=== PATIENT | female | born 1990 ===

== ENCOUNTER 2023-01-08 11:13 | Emergency (ER) | payer MEDICAID, SELFPAY ==
[2023-01-08 12:02] VITALS: BP 138/91; PULSE 76; RESP 18; TEMP 36.7; O2SAT 95; BMI 31.7
--- NOTE | 2023-01-08 12:02 | ED.GENADULT ---
HPI - General Adult General Chief complaint: General Medical Stated complaint: Tampon stuck Related Data Allergies Allergy/AdvReac Type Severity Reaction Status Date / Time No Known Allergies Allergy Verified 01/08/23 12:01 [facility] Social History Social History Advance Directives: No Advance Directives Information Provided: No Physical Exam ED Vital Signs: BMI result Body Mass Index 31.7 Course Course Course Narrative: This is an RME: Additional HPI, ROS, PE not included below will be deferred to primary provider. 32 year old female presents w/ tampon stuck in vaginal canal since Saturday. Reports no concern for pregancy. States shes on her period and not bleeding.. Plan- UA Discharge Plan Discharge Clinical Impression: Eloped from emergency department Patient Disposition: Elopement Discharge Date/Time: 01/08/23 19:17 Print Language: Greek
== END 2023-01-08 19:17 | disposition left against medical advice (07) ==
PROVIDERS: Emergency Provider Emergency Medicine
DX: T19.2XXA Foreign body in vulva and vagina, initial encounter (principal)
CPT/HCPCS: 99281

== ENCOUNTER 2025-05-07 12:53 | Outpatient (REF) | payer OTHER, SELFPAY ==
[2025-05-07 17:39] LABS: MANUAL DIFF FLAG NO
[2025-05-07 17:47] LABS: Hematocrit 40.5 % (37.0-47.0); Hemoglobin 13.8 g/dl (12.0-16.0); Imm Gran Abs Auto 0.05 X10*3/uL (0.00-0.03); Imm Gran Pct Auto 0.5 % (0.0-0.4); Lymphocytes Absolute Auto 3.1 X10*3/uL (1.2-4.9); Mean Corpuscular HGB Conc 34.1 g/dl (31.0-35.0); Mean Corpuscular Hemoglobin 29.7 pg (27.0-33.0); Mean Corpuscular Volume 87.1 fL (80.0-98.0); NRBC Abs Auto 0.000 X10*3/uL (0.0-0.012); NRBC Pct Auto 0.0 /100WBC (0.0-0.2); Platelet Count 286 X10*3/uL (160-400); Red Blood Count 4.65 X10*6/uL (4.20-5.50); White Blood Count 9.4 X10*3/uL (4.8-10.8)
[2025-05-07 17:50] LABS: Appearance Urine Clear; Glucose Urine UA Negative (Negative); PH 6.0 (5.0-9.0); Specific Gravity - Urine 1.015 (1.005-1.025); UMIC TRIGGER UACC YES
[2025-05-07 18:05] LABS: Alanine Aminotransferase 44 U/L (0-31); Albumin Level 4.8 g/dL (3.5-5.0); Alkaline Phosphatase 86 U/L (39-117); Anion Gap 10 (12-20); Aspartate Amino Transferase 22 U/L (5-31); Blood Urea Nitrogen 11 mg/dL (9-16); Calcium 9.7 mg/dL (8.4-10.2); Carbon Dioxide 27 mmol/L (22-29); Chloride 105 mmol/L (96-108); Cholesterol 201 mg/dL (<200); Estimated Glomerular Filt Rate > 60; HDL Cholesterol 48 mg/dL (>40); Magnesium 2.2 mg/dL (1.6-2.6); Potassium 3.5 mmol/L (3.3-5.1); Sodium 138 mmol/L (135-145); Total Protein 8.0 g/dL (6.5-8.0); Triglycerides 228 mg/dL (<150)
[2025-05-07 18:36] LABS: Folate 12.5 ng/mL (> or = 4.0); Vitamin B12 346 pg/mL (200-900)
[2025-05-07 23:47] LABS: CT PCR Urine NOT DETECTED (Not Detect.); NG PCR Urine NOT DETECTED (Not Detect.)
[2025-05-08 07:21] LABS: HBS Num1 373.65 mIU/mL (0-7.99); HBsAGNum1 0.29 S/CO (0.00-0.99); HIV Num 1 0.07 S/CO (0.00-0.99); Hepatitis B Surface Antigen Negative (Negative); ~HepC Num1 0.12 S/CO (0.00-0.79); ~Hepatitis B Surface Antibody REACTIVE (Nonreactive); ~Hepatitis C Antibody Nonreactive (Nonreactive)
[2025-05-08 07:26] LABS: Syphilis Screen Nonreactive (Nonreactive)
[2025-05-11 18:29] LABS: Vitamin D 25-OH, D2 <4 ng/mL; Vitamin D 25-OH, D3 23 ng/mL; Vitamin D 25-OH, Total 23 ng/mL (30-100)
== END 2025-05-07 12:54 | disposition home or self-care (01) ==
LOC: HO.HKASLDS 12:53
PROVIDERS: PCP Student in an Organized Health Care Education/Training Program; Visit Provider Student in an Organized Health Care Education/Training Program
DX: Z13.9 Encounter for screening, unspecified (principal); F41.9 Anxiety disorder, unspecified; G47.00 Insomnia, unspecified; Z96.22 Myringotomy tube(s) status; D17.9 Benign lipomatous neoplasm, unspecified; R87.619 Unspecified abnormal cytological findings in specimens from cervix uteri; Z94.9 Transplanted organ and tissue status, unspecified; Z87.891 Personal history of nicotine dependence; H93.90 Unspecified disorder of ear, unspecified ear
CPT/HCPCS: 80053; 80061; 81001; 82306; 82607; 82746; 83036; 83735; 84443; 85025; 86706; 86780; 86803; 87340; 87389; 87491; 87591; 96127

== ENCOUNTER 2025-05-07 12:53 | Outpatient (AMB) | payer OTHER, SELFPAY ==
--- NOTE | 2025-05-07 13:01 | A.OFFPC_ITS ---
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 Required: No Accompanied by: Self / Same As Patient Allergies No Known Allergies Allergy (Verified 05/07/25 13:03) Medication List - Last Reconciled 05/07/25 by Preston Arreguin MD No Known Home Meds Tobacco use date assessed: 05/07/25 Dental Screening Dental Screen Date: 05/07/25 Did you have a dental visit in the last 12 months?: Yes Did you have a dental problem in the last 6 months where you did not have access to dental care?: No Was dental information given to patient?: Patient has dentist HPI HPI Comments History of Present Illness Details History of Present Illness The patient is a 34 year old female presenting with a desire to establish primary care. Anxiety and Insomnia: The patient reports experiencing super high anxiety , which she attributes to life circumstances and a high-stress job in [employer]. She has been taking non-prescribed hydroxyzine for anxiety and Ativan to help with sleep, which she obtains from a cousin. She reports her sleep is horrible due to high tension. Chronic Otitis: The patient has a history of chronic right ear problems since childhood, including having a graft for the eardrum and placement of ET tubes as a kid. She experienced a very bad ear infection a few months ago, and the ear still bothers her slightly. Lipoma: The patient notes a lump on her arm that sometimes gets really hard and other days is soft. She has expressed a desire to have it removed. Gynecologic History: The patient reports a history of abnormal Pap smears with abnormal cells and has recently resumed getting them after a period without health insurance. Her menses occur monthly and are normal now, though she had very bad periods in middle school. Surgical History: - Eardrum graft - Eustachian tube (ET) placement in [facility] Medications: - Hydroxyzine (non-prescribed) for anxie ty - Ativan (non-prescribed) for sleep Social History: - Employment: Works in [employer], which she describes as a high- stress job. - Family status: She is a single mother to one daughter, who was born via normal spontaneous vaginal delivery. - Tobacco use: The patient has a history of smoking cigarettes but has quit. - Vaping: She currently vapes occasional ly, for the past couple of years. - Substance use: Denies illegal drug use . Family History: - The patient denies any family history of cancer. Past Medical History - Chronic ear problems since childhood. - Recent severe ear infection a few paula hs prior. - History of abnormal Pap smears. Health Maintenance - Comprehensive lab work will be ordered to establish a baseline. - Lab orders include: Complete Blood Cou nt (CBC), Comprehensive Metabolic Panel (CMP), chlamydia/gonorrhea screen, Hemoglobin A1c, Hepatitis B and C panels, HIV screen, lipid panel, magnesium, syphilis screen (RPR), thyroid panel, urinalysis, vitamin B12, folate, and vitamin D. - A follow-up visit is scheduled in two weeks to discuss the results and formul ate further plans. [facility] Medical History (Updated 05/07/25 @ 20:20 by Preston Arreguin MD) Chronic disease of ear History of tobacco use Abnormal Pap smear of cervix Lipoma Insomnia Anxiety Surgical History (Updated 05/07/25 @ 20:18 by Preston Arreguin MD) History of tissue graft History of placement of ear tubes Family History (Updated 05/07/25 @ 13:10 by Checo Cartagena MA) Father Heart problem Mother No problems noted. Social History Housing: Apartment Patient Tobacco Use Status: Former Tobacco user e-Cigarette/Vaping Use: Never Used service: No Current occupational status: employed Cognitive needs: No Hearing needs: No Vision needs: Yes (rx glasses) Questionnaire PHQ-9 Over the last 2 weeks, how often have you been bothered by any of the following problems? 1. Little interest or pleasure in doing things: not at all 2. Feeling down, depressed, or hopeless: not at all 3. Trouble falling or staying asleep, or sleeping too much: several days 4. Feeling tired or having little energy: several days 5. Poor appetite or overeating: not at all 6. Feeling bad about yourself - or that you are a failure or have let yourself or your family down: not at all 7. Trouble concentrating on things, such as reading the newspaper or watching television: not at all 8. Moving or speaking so slowly that other people could have noticed. Or the opposite - being so fidgety or restless that you have been moving around a lot more than usual: not at all 9. Thoughts that you would be better off or of hurting yourself in some way: not at all Total score: 2 Depression Screening Interpretation: Negative Depression Screening Done: Yes Source: Developed by Drs. Juice Mederos, Sharon Escudero, Alejandro Nixon and colleagues, with an educational regla from [employer]. Thrive Questionnaire I am a: Patient What is your living situation today?: I have a steady place to live Within the past 12 months, did the food you bought not last and you didn't have the money to get more?: Never true Within the past 12 months, did you worry whether your food would run out before you got money to buy more?: Never true Do you have trouble paying for medicines?: No Do you have trouble getting transportation to medical appointments?: No Do you have trouble paying your heating and electricity bill?: No Do you have trouble taking care of your child, family member or friend?: No Do you have trouble with day-to-day activities such as bathing, preparing meals, shopping, managing finances, etc.?: No Are you currently unemployed and looking for a job?: No Are you interested in more education?: No Please select the resources that you would like help with: None Currently or been in a relationship where the following occur: No concerns reported THRIVE Score: 0 AUDIT C Alcohol Use Questionnaire (AUDIT-C) 1. How often do you have a drink containing alcohol?: Monthly or less 2. How many drinks containing alcohol do you have on a typical day when you are drinking?: 3 or 4 3. How often do you have six or more drinks on one occasion?: Never Total Score: 2 RONNIE-7 AMB Questionnaire RONNIE-7 Feeling nervous, anxious, or on edge: 2 = More than half the days Not being able to stop or control worryin = Several days Worrying too much about different things: 1 = Several days Trouble relaxin = Several days Being so restless that it is hard to sit still: 0 = Not at all Becoming easily annoyed or irritable: 0 = Not at all Feeling afraid as if something awful might happen: 1 = Several days Total RONNIE-7 score (0-4 normal; 5-9 mild; 10-14 moderate; 15-21 severe): 6 Source: Developed by Drs. Juice Mederos, Sharon Escudero, Alejandro Nixon and colleagues, with an educational regla from [employer]. Review of Systems Narrative Review of Systems - Constitutional: Reports high stress levels and poor sleep. Denies other constitutional symptoms. - HEENT: Reports a history of chronic right ear problems, with some current mild bother after a recent infection. Denies other HEENT symptoms. - Psychological: Reports super high anxiety. - : Reports history of abnormal Pap smears. Menses are regular and normal. Denies dysuria or other urinary issues. - GI: Denies constipation, diarrhea, or other GI symptoms. - Skin: Reports a lump on her arm. 10-point ROS reviewed and negative except as noted in HPI Physical exam (Primary Care) Vital Signs: Last Vital Signs Temp 98.2 F 05/07/25 13:08 Pulse 83 05/07/25 13:08 Resp 16 05/07/25 13:08 BP 130/76 05/07/25 13:08 Pulse Ox 98 05/07/25 13:08 Oxygen Delivery Method Room Air 05/07/25 13:08 BMI result Body Mass Index 29.0 Tobacco/Smoking Status: Tobacco use Status Tobacco use date assessed 05/07/25 05/07/25 13:06 Patient Tobacco Use Status Former Tobacco user 05/07/25 13:12 e-Cigarette/Vaping Use Never Used 05/07/25 13:12 PHQ-9: PHQ-9 Score PHQ-9: Total score 2 05/07/25 13:42 Depression Screening Interpretation: Negative Currently or been in a relationship where the following occur: No concerns reported Narrative Physical Exam General: Well-appearing, in no acute distress. Vital signs: Within normal limits, 130. HEENT: Normocephalic, atraumatic. PERRLA, EOMI. Conjunctiva clear, sclera anicteric. Oropharynx clear, mucous membranes moist. Right ear with a history of chronic ear problems and a graft on the eardrum; no current infection observed. TMs intact bilaterally. Neck: Supple, no lymphadenopathy, no thyromegaly, no JVD or carotid bruits. Cardiovascular: RRR, normal S1/S2, no murmurs, rubs, or gallops. Peripheral pulses 2+ and symmetric. No edema. Respiratory: Lungs clear to auscultation bilaterally, no wheezes, rales, or rhonchi. Normal effort. Abdomen: Soft, non-tender, non-distended. Normoactive bowel sounds. No hepatosplenomegaly, no masses. MSK: Full range of motion, no joint swelling or deformity. Normal gait. Noted lipoma on the arm, well-circumscribed, mobile, sometimes hard or soft. Skin: Warm, dry, intact. No rashes, lesions, or pallor. Neuro: Alert and oriented x3. Cranial nerves II-XII intact. Strength 5/5 throughout. Sensation intact. Reflexes 2+ symmetric. Normal coordination and gait. Psych: Appropriate mood and affect. Normal judgment and insight. 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 Taking hydroxyzine and Ativan for anxiety and sleep, not prescribed. Coding Level of Care Code New Pt Level 4 (10025) Add On Problem Visit Only Diagnoses Anxiety F41.9 Insomnia G47.00 History of placement of ear tubes Z96.22 Lipoma D17.9 Abnormal Pap smear of cervix R87.619 History of tissue graft Z94.9 History of tobacco use Z87.891 Chronic disease of ear H93.90 Assessment & Plan Assessment & Plan (1) Anxiety: Code(s): F41.9 - Anxiety disorder, unspecified Category: Medical (2) Insomnia: Code(s): G47.00 - Insomnia, unspecified Category: Medical (3) History of placement of ear tubes: Code(s): Z96.22 - Myringotomy tube(s) status Category: Medical (4) Lipoma: Code(s): D17.9 - Benign lipomatous neoplasm, unspecified Category: Medical (5) Abnormal Pap smear of cervix: Code(s): R87.619 - Unspecified abnormal cytological findings in specimens from cervix uteri Category: Medical (6) History of tissue graft: Code(s): Z94.9 - Transplanted organ and tissue status, unspecified Category: Medical (7) History of tobacco use: Code(s): Z87.891 - Personal history of nicotine dependence Category: Medical (8) Chronic disease of ear: Code(s): H93.90 - Unspecified disorder of ear, unspecified ear Category: Medical Plan Consent Patient was informed and verbally consented to the use of an ambient scribe for clinic note documentation during this visit. Plan 1. Anxiety And Insomnia - The patient was counseled on the addictive potential of benzodiazepines like Ativan and the risks associated with withdrawal. 2. Lipoma - The patient was reassured that the arm lesion appears to be a benign lipoma. - As the patient desires removal, this will be planned. 3. Chronic Otitis - Examination confirmed the presence of a tympanic membrane graft and no current signs of infection. Discussion Notes I discussed with the patient the plan to establish her as a new primary care patient. I explained that we would perform a comprehensive set of baseline laboratory studies, including a CBC, CMP, lipid panel, HbA1c, thyroid function, vitamin levels, and infectious disease screening for a thorough health overview. We will have a follow-up appointment in two weeks to review these results and determine the next steps in her care. Regarding the lump on her arm, I explained that it feels like a benign lipoma, which is an accumulation of fat tissue, and it does not appear worrisome. Since she expressed a desire to have it removed, we will arrange for that. I also informed her that her right ear examination reveals a graft and no active infection. Given her use of non-prescribed Ativan, I advised her about the addictive nature of benzodiazepines and the potential dangers of withdrawal. Patient Instructions - Please proceed to the lab to have your blood drawn for the tests we discussed. - Schedule a follow-up appointment in two weeks to go over your lab results and make a plan for your health. - Be aware that Ativan (a benzodiazepine) can be addictive and stopping it suddenly can be dangerous. - The lump on your arm appears to be a harmless collection of fat called a lip jose. - We will make arrangements for the removal of the lipoma as you requested. Medical Decision Making The patient is a 34-year-old female presenting to establish primary care. The primary goal is to obtain a comprehensive baseline of her health status through extensive lab work, given her lack of recent primary care. The lab panel is designed to screen for common metabolic, infectious, and endocrine disorders and to assess organ function. The patient's use of non-prescribed hydroxyzine and Ativan for anxiety and sleep is a concern. I provided education on the risks of benzodiazepine dependence and withdrawal. Managing her anxiety will be a du part of her care plan following review of labs. The subcutaneous nodule on her arm has clinical features of a lipoma???it is well-circumscribed, mobile, and soft???and is likely benign. Given her request for removal, a plan for excision will be made. Her chronic ear issues are noted; otoscopy confirms a prior graft and no acute pathology. We will follow up in two weeks to discuss all findings and create a consolidated-care plan. Total Time Statement 30 min Total time spent caring for the patient today includes pre-visit chart review, documentation, review of laboratory and diagnostic imaging results, medication reconciliation, medically necessary evaluation, counseling on diagnoses, care coordination, ordering appropriate tests and medications, review of tests performed by other providers, reporting test results to the patient, and communication with other healthcare providers. Orders: Orders Complete Blood Count Auto Diff Today Z13.9 - Encounter for screening, unspecified Hepatitis B Surface Antigen Today Z13.9 - Encounter for screening, unspecified Syphilis Screen Today Z13.9 - Encounter for screening, unspecified Comprehensive Met. Panel Today Z13.9 - Encounter for screening, unspecified Hepatitis C Antibody Today Z13.9 - Encounter for screening, unspecified TSH reflex Free T4 Today Z13.9 - Encounter for screening, unspecified UA CC w/rflx Micro + Cult Today Z13.9 - Encounter for screening, unspecified CT NG by PCR Urine Today Z13.9 - Encounter for screening, unspecified HIV Ab/Ag Today Z13.9 - Encounter for screening, unspecified Lipid Panel Today Z13.9 - Encounter for screening, unspecified Vitamin B12 and Folate Today Z13.9 - Encounter for screening, unspecified Hemoglobin A1c Today Z13.9 - Encounter for screening, unspecified Magnesium Today Z13.9 - Encounter for screening, unspecified Hepatitis B Surface Antibody Today Z13.9 - Encounter for screening, unspecified Vitamin D 25-OH (D2 and D3) Today Z13.9 - Encounter for screening, unspecified
[2025-05-07 13:08] VITALS: BP 130/76; PULSE 83; RESP 16; TEMP 36.8; O2SAT 98; BMI 29.0
--- OUTSIDE RECORDS SUMMARY | 2025-05-07 18:35 | XMS_ITS | Clinical Summary ---
Author Organization [facility] Address [address] [place] [address] Phone Care Team Providers Care Creative Consultant Name Role Phone Alexi Harrington JOHN Primary Care Provider [phone] Allergies No known active allergies Medications No known medications Active Problems No known active problems Social History Tobacco Use Types Packs/Day Years Used Date Smoking Tobacco: Some Days Cigarettes Tobacco Cessation:Ready to Q uit: Not Asked; Counseling Given: Not Answered Alcohol Use Standard Drinks/Week Comments Never 0 (1 standard drink = 0.6 oz pur e alcohol) occasional Comments Unknown Sex and Gender Information Value Date Recorded Sex Assigned at Not on file Legal Sex Female 1:09 PM EST Gender Identity Not on file Sexual Orientation Not on file Last Filed Vital Signs Vital Sign Reading Time Taken Comments Blood Pressure 117/67 12/03/2024 9:28 AM EDT Pulse 77 12/03/2024 9:28 AM EDT Temperature 36.8 C (98.2 F) 12/03/2024 9:28 AM EDT Respiratory Rate 18 12/03/2024 9:28 AM EDT Oxygen Saturation 99% 12/03/2024 9:28 AM EDT Inhaled Oxygen Concentration - - Weight 76.2 kg (168 lb) 12/03/2024 9:28 AM EDT Height 157.5 cm (5' 2 ) 12/03/2024 9:28 AM EDT Body Mass Index 30.73 12/03/2024 9:28 AM EDT Plan of Treatment Health Maintenance Due Date Last Done Comments Hepatitis B Vaccines (1 of 3 - 19+ 3-dose series) 2009 Pneumococcal Vaccine: Pediatrics (0 to 5 Years) and At-Risk Patients (6 to 49 Years) (1 of 2 - PCV) 2009 Cervical Cancer Screening: Pap Smear 10/17/2011 HPV Vaccines (3 - 3-dose series) 05/10/2014 02/15/2014, 04/07/2010 Cholesterol Screening (Lipid Panel) 04/24/2022 HIV Screening 04/24/2022 Hepatitis C Screening 04/24/2022 Social Influencers of Health Screening 04/24/2022 Depression Screening 05/27/2024 COVID-19 Vaccine (2 - 2024- season) 2025 12/12/2020 Influenza Vaccine (#1) 2025 9, 03/15/2016, 03/05/2015, Additional history exists DTaP,Tdap,and Td Vaccines (4 - Td or Tdap) 11/09/2030 11/09/2020, 05/19/2019, 02/01/2014 RSV Immunization Adult Patients (1 - 1-dose 75+ series) 2065 MMR Vaccines Completed 10/17/1991 HIB Vaccines Aged Out No longer eligi ble based on patient's age to complete this topic Hepatitis A Vaccines Aged Out No long er eligible based on patient's age to complete this topic IPV Vaccines Aged Out No longer eligi ble based on patient's age to complete this topic Meningococcal ACWY Vaccine Aged Out N o longer eligible based on patient's age to complete this topic Meningococcal B Vaccine Aged Out No l onger eligible based on patient's age to complete this topic RSV Immunization Patients Under 20 months Aged Out No longer eligible based on patient's age to complete this topic Varicella Vaccines Aged Out No longer eligible based on patient's age to complete this topic Insurance [employer] Care Teams Creative Consultant Relationship Specialty Start Date End Date Alexi Harrington FNP [address] [place] [address] PCP - General Internal Medicine 08/15/20
--- OUTSIDE RECORDS SUMMARY | 2025-05-07 18:35 | XMS_ITS | Patient Health Record ---
Author Organization [facility] Address [address] [place] [address] Care Team Providers Care Net Architect Name Role Phone JUANITA FONTENOT Unavailable [phone] Allergies No Known Allergies Results Component Value Reference Range Flag Notes NuSwab VG+, Shannon [id number] 68 Reviewed date:12/01/2024 08:16:24 AM Interpretation:Negative Performing Lab:[facility] [place], [address] [place] [address], [place], Phone - [phone], Director - [place] Notes/Report: and Drug Administration. by [employer]. It has not been cleared or approved by the Food was developed and its performance characteristics determined 105456-Wmaayjq krusei, MARTITA 228387-N parapsilosis/tropicalis; 949942-Ybygvkf lusitaniae, MARTITA; Test(s) 471951-Jhcluot albicans, MARTITA; 079814-Wwctwhq glabrata, MARTITA; and Drug Administration. by [employer]. It has not been cleared or approved by the [employer] was [employer] and its performance characteristics determined Megasphaera 1 Test(s) 600305- Atopobium vaginae; 008642- BVAB 2; 958229- Atopobium vaginae Low - 0 BVAB 2 Low - 0 Megasphaera 1 Low - 0 Calculate total score by adding the 3 individual bacterial vaginosis (BV) marker scores together. Total score is interpreted as follows: Total score 0-1: Indicates the absence of BV. Total score 2: Indeterminate for BV. Additional clinical data should be evaluated to establish a diagnosis. Total score 3-6: Indicates the presence of BV. Shannon albicans, MARTITA Negative Negative Shannon glabrata, MARTITA Negative Negative C parapsilosis/tropicalis Negative Negative This ass ay does not differentiate C. tropicalis and C. parapsilosis. Shannon lusitaniae, MARTITA Negative Negative Shannon krusei, MARTITA Negative Negative Trich vag by MARTITA Negative Negative Chlamydia trachomatis, MARTITA Negative Negative Neisseria gonorrhoeae, MARTITA Negative Negative HCV Antibody RFX to Quant PC [id number] Reviewed date:12/01/2024 08:59:27 AM Interpretation:Negative Performing Lab:[facility], [address], [address], [employer], Phone - [phone], Director - [facility] Notes/Report: HCV Ab Non Reactive Non Reactive Interpretation: Not infected with HCV unless early or acute infection is suspected (which may be delayed in an immunocompromised individual), or other evidence exists to indicate HCV infection. HIV Ab/p24 Ag with Reflex-[id number] Reviewed date:12/01/2024 09:00:19 AM Interpretation:Negative Performing Lab:[facility], [address], [address], [employer], Phone - [phone], Director - [facility] Notes/Report: HIV Ab/p24 Ag Screen Non Reactive Non Reactive HIV-1/HIV-2 antibodies and HIV-1 p24 antigen were NOT detected. There is no laboratory evidence of HIV infection. HIV Negative T pallidum Screening [place] -[id number] Reviewed date:12/01/2024 09:00:31 AM Interpretation:Negative Performing Lab:[facility], [address], [address], [employer], Phone - [phone], Director - [facility] Notes/Report: T pallidum Antibodies Non Reactive Non Reactive Interpretation: Syphilis: Treponemal Antibodies with Reflex to RPR and RPR Titer, Reverse Screening and Diagnosis Algorithm Treponemal Treponemal Ab RPR, Qn Ab, TPPA Final Interpretation -------- -- Non N/A N/A No laboratory evidence Reactive of syphilis. Retest in 2-4 weeks if recent exposure is suspected. -------- -- Reactive Non Non Treponemal antibodies Reactive Reactive not confirmed. Inconclusive for syphilis; potential early syphilis, possible false positive. Retest in 2-4 weeks if recent exposure is suspected. -------- -- Reactive Non Reactive Treponemal antibodies Reactive detected. Consistent with past or current (potential early) syphilis. -------- -- Reactive >/=1:1 N/A Treponemal and nontreponemal antibodies detected. Consistent with current or past syphilis. Hepatitis B Surf Ab Quant-[id number] Reviewed date:12/01/2024 08:59:53 AM Interpretation:Immune Performing Lab:[facility] [employer], [employer], [employer], Phone - [phone], Director - [facility] Notes/Report: Hepatitis B Surf Ab Quant 412.0 Immunity>10 mIU/mL Status of Immunity Anti-HBs Level Inconsistent with Immunity 0.0 - 10.0 Consistent with Immunity >10.0 HBsAg Screen-[id number] Reviewed date:12/01/2024 09:00:05 AM Interpretation:Negative Performing Lab:[facility] [address], [address], [employer], Phone - [phone], Director - [facility] Notes/Report: HBsAg Screen Negative Negative [place] Reviewed date:11/25/2024 12:25:37 PM Interpretation:BV positive, WBC Performing Lab: Notes/Report: BV positive, WBC Clue Cells pos WBC many Hyphae neg Trichomonas neg pH 6 JOHN Prep pos whiff [place] Reviewed date:08/21/2024 03:07:41 PM Interpretation:Normal Performing Lab: Notes/Report: Normal Clue Cells neg WBC neg Hyphae neg Trichomonas neg pH 4.5 JOHN Prep very faint pos whiff APTIMA COMBO 2 CT/NG, Urine Reviewed date:08/24/2024 12:30:07 PM Interpretation:Negative Performing Lab:[facility], [facility], [place], [address] Brian Oliva DO Notes/Report: GONORRHEA, AMPLIFIED NEGATIVE NEGATIVE N CHLAMYDIA, AMPLIFIED NEGATIVE NEGATIVE N DNA Test Results SEX: F : 1990 AGE: 33 [id number] CLINIC ID: [id number] SS: PHYSICIAN: JUANITA FONTENOT CNM COLLECTED BY: [id number] Specimen Source: Urine Specimen Type: Urine, Kiran PCR Medium Neisseria gonorrhoeae: NEGATIVE Normal Value: Negative Chlamydia trachomatis: NEGATIVE Normal Value: Negative Test, Urine Reviewed date:08/21/2024 03:03:02 PM Interpretation:Negative Performing Lab: Notes/Report: Negative Test, Urine Negative Lot # [id number] Exp. Date 02/16/25 Reason For Referral Reason L likely Bartholin c yst present for 1.5-2wks. Not self improving or draining. Please further evaluate and manage STI labs pending Diagnosis 1 Cyst of Bartholin's gland (N75.0) Referral Organization [facility] Referring Provider First Name JUANITA Referring Provider Last Name CORIE Referring Provider Speciality Certified Nurse Manager [employer] Referred Provider Specialty Outpatient Dietitian Clinical Notes Janie Woods 2024 12:53:50 PM > referral faxed to [place] Referral Priority Urgent Medications Medication SIG (Take, Route, Frequency, Duration) Notes Start Date End Date Status Fluconazole 150 MG Tablet 1 tablet Orally One tablet stat; Duration: 1 days 11/25/2024 Active metroNIDAZOLE 500 MG Tablet 1 tablet Orally Twice a day, every 12 hours; Duration: 7 days 11/25/2024 Active Levonorgestrel 1.5 MG Tablet as directed Orally May take upto 5 days after sex as needed; Duration: 1 days 08/21/2024 Not-Taking/PRN Social History Sex Assigned At : Social History Observation Description Sex Assigned At Female Social History HIV Risk Assessment Social Info Question Answer Notes Additional Questions Is an HIV Risk Assessment being c onducted? Yes Have you been tested for HIV before? Yes Did you have a blood transfusion prior to 1985? No Do you have an unlicensed body piercing or tattoo? No Reproductive Life Plan: Social Info Question Answer Notes Reproductive Life Plan: Do you want to h ave children? No, I don't want to have children How sure are you that you will be able to use your control method without any problems? Very sure People's plans change. Is it possible you or your partner could ever decide to become ? No Human Trafficking: Social Info Question Answer Notes Human Trafficking Experienced: No PrEP for HIV: Social Info Question Answer Notes PrEP for HIV Is the client intere sted in beginning/continuing PrEP for HIV? No Sexual History: Social Info Question Answer Notes Sexual History: Sexual History Reviewed: Partner s, Practices, Protection/Past STIs Currently sexually active? Yes Sexually active with: Men Number of male partners 1 Your sexual activities include: oral intercourse, vaginal intercourse Do you use condoms? Yes Condoms are used: most of the time Date of last unprotected intercourse: 11/04/2024 Number of partners in past 3 months: 1 Number of partners in past year: 2 Does your partner(s) currently have any STIs? No Counseling Provided: Social Info Question Answer Notes Counseling Provided Please indicate the length of time, in minutes, that counseling was provided. 5 Counseling Was Provided By: yobani Drugs/Alcohol: Social Info Question Answer Notes Drug/Alcohol Use Do you or have you used drugs? No Client admits to quitting using marijuana Do you or have you used alcohol? Yes, currently Socially Food Access: Social Info Question Answer Notes Food Access The Client's current access to food is Secure Food Access Relationships: Social Info Question Answer Notes Relationships Has the client experienced any of the following: Client has never experienced harmful relationships DO NOT USE - Travel Plans: Social Info Question Answer Notes Travel Plans DO NOT USE - Has cli ent traveled to any Zika affected areas? Yes DO NOT USE - Has partner traveled to any Zika af fected areas? Yes DO NOT USE - Is client planning to travel to any Zika affected areas? No DO NOT USE - Is partner planning to travel to an y Zika affected areas? No Housing Social Info Question Answer Notes Housing The client's current living situation is: stable housing Tobacco Use: Social Info Question Answer Notes Tobacco Use: Do you/have you used tobacco? Yes, currently Vapes/ cigarettes sometimes, not as often as she uses the vape How many cigarettes do you smoke per day? 0 - 10 Tobacco Smoking Status Current every day smoker Section Notes: Aptima/ Bw Problems Problem Type SNOMED Code ICD Code Onset Dates Problem Status W/U Status Risk Notes Problem Anogenital warts (278860736) Anogenital (venereal) warts (A63.0) Active confirmed Vital Signs Blood pressure diastolic 76 mm Hg 11/25/2024 Height 5'2 in 11/25/2024 Blood pressure systolic 126 mm Hg 11/25/2024 Weight 167.8 lbs 11/25/2024 BMI 30.69 kg/m2 11/25/2024 Encounters Encounter Location Date Provider Diagnosis [address] [id number] 08/21/2024 JUANITA FONTENOT Encounter for scre ening for infections with a predominantly sexual mode of transmission Z11.3 ; Encounter for test, result negative Z32.02 ; Encounter for screening for other infectious and parasitic diseases Z11.8 ; Other problems related to lifestyle Z72.89 and Encounter for prescription of emergency contraception Z30.[address] [id number] 11/25/2024 JUANITA FONTENOT Encounter for scre ening for infections with a predominantly sexual mode of transmission Z11.3 ; Vaginitis, Acute N76.0 ; Other problems related to lifestyle Z72.89 ; Cyst of Bartholin's gland N75.0 ; HIV Screening Z11.4 ; Encounter for screening for other viral diseases Z11.59 and Vaginal discharge N89.[address] [id number] 01/06/2025 JUANITA FONTENOT [address] [id number] 03/24/2025 JUANITA FONTENOT Assessments Encounter Date Diagnosis (ICD Code) Assessment Notes Treatment Notes Treatment Clinical Notes Section Notes 08/21/2024 Encounter for screening for infections with a predominantly sexual mode of transmission (ICD-10 - Z11.3) Discussed STI risks, screenings that are available through [facility] and safe sex. Clt aware of lab processing times and how to view results on portal and how positive results will be communicated Need 2 out of 3 Sections from A-C Section A) Problems (only need one from below) One acute or uncomplicated illness/injury Section B) Data (at least one of the following categories in this section) Category 1: (Choose 2 of the following): Order unique tests Section C) Risk Document low risk of morbidity/mortal ity 08/21/2024 Encounter for test, result negative (ICD-10 - Z32.02) Need 2 out of 3 Sections from A-C Section A) Problems (only need one from below) One acute or uncomplicated illness/injury Section B) Data (at least one of the following categories in this section) Category 1: (Choose 2 of the following): Order unique tests Section C) Risk Document low risk of morbidity/mortal ity 11/25/2024 Encounter for screening for infections with a predominantly sexual mode of transmission (ICD-10 - Z11.3) Discussed STI risks, screenings that are available through [facility] and safe sex. Clt aware of lab processing times and how to view results on portal and how positive results will be communicated Need 2 out of 3 Sections from A-C Section A) Problems (only need one from below) Section B) Data (need at least one of the following categories in this section) Category 1: (Choose three of the following): Order Unique tests Section C) Risk (any one of the following) Prescription drug management (this counts for the whole section) 11/25/2024 Vaginitis, Acute (ICD-10 - N76.0) Reviewed BV findings and treatment options. No sexual activity during treatment and condom/barrier use encouraged following for at least a month for prevention. Reviewed an [place] study that came out July 2024, showing a possible sexual transmission aspect of BV. The study found that treating AMAB partners (partner with a penis) decreased reoccurrence rate from 63% to 35% in the first 3 months after treatment. This is a new study, and we are still learning all the implications of it's findings. There is still more to learn regarding BV and proper treatment to avoid recurrent issues. Partner treatment discussed today. Clt will discuss treatment options with partner Clt feels strongly they are also dealing with yeast- none seen on wet mount but many WBC so can't r/o yeast and/or trich. Will provide fluconazole x 1 tablet and clt aware that BV tx does cover trich if present. Will confirm with vag plus testing. Suggested avoiding sexual activity until testing confirmed and feeling more comfortable in the genital area Need 2 out of 3 Sections from A-C Section A) Problems (only need one from below) Section B) Data (need at least one of the following categories in this section) Category 1: (Choose three of the following): Order Unique tests Section C) Risk (any one of the following) Prescription drug management (this counts for the whole section) 11/25/2024 Other problems related to lifestyle (ICD-10 - Z72.89) Need 2 out of 3 Sections from A-C Section A) Problems (only need one from below) Section B) Data (need at least one of the following categories in this section) Category 1: (Choose three of the following): Order Unique tests Section C) Risk (any one of the following) Prescription drug management (this counts for the whole section) 08/21/2024 Encounter for screening for other infectious and parasitic diseases (ICD-10 - Z11.8) Wet mount not meeting criteria for BV. May have very mild imbalance. Can continue to monitor and try using boric acid nightly x 5 nights to see if symptoms improve. RTC if symptoms are persistent or worsen. Reviewed boric acid use for BV prevention and self treatment. To be used vaginally only as can be toxic if ingested. Sample packs given Need 2 out of 3 Sections from A-C Section A) Problems (only need one from below) One acute or uncomplicated illness/injury Section B) Data (at least one of the following categories in this section) Category 1: (Choose 2 of the following): Order unique tests Section C) Risk Document low risk of morbidity/mortal ity 08/21/2024 Other problems related to lifestyle (ICD-10 - Z72.89) Need 2 out of 3 Sections from A-C Section A) Problems (only need one from below) One acute or uncomplicated illness/injury Section B) Data (at least one of the following categories in this section) Category 1: (Choose 2 of the following): Order unique tests Section C) Risk Document low risk of morbidity/mortal ity 11/25/2024 Cyst of Bartholin's gland (ICD-10 - N75.0) L labia cyst present. Will put in [employer] referral for further evaluation and management. Can do warm bath soaks and compresses in the mean time. Clt aware that they can go to ER/WETU in the meantime if they feel it is needed due to worsening symptoms Need 2 out of 3 Sections from A-C Section A) Problems (only need one from below) Section B) Data (need at least one of the following categories in this section) Category 1: (Choose three of the following): Order Unique tests Section C) Risk (any one of the following) Prescription drug management (this counts for the whole section) 08/21/2024 Encounter for prescription of emergency contraception (ICD-10 - Z30.012) For use when needed dispensed from in house stock Need 2 out of 3 Sections from A-C Section A) Problems (only need one from below) One acute or uncomplicated illness/injury Section B) Data (at least one of the following categories in this section) Category 1: (Choose 2 of the following): Order unique tests Section C) Risk Document low risk of morbidity/mortal ity 11/25/2024 HIV Screening (ICD-10 - Z11.4) Need 2 out of 3 Sections from A-C Section A) Problems (only need one from below) Section B) Data (need at least one of the following categories in this section) Category 1: (Choose three of the following): Order Unique tests Section C) Risk (any one of the following) Prescription drug management (this counts for the whole section) 11/25/2024 Encounter for screening for other viral diseases (ICD-10 - Z11.59) Need 2 out of 3 Sections from A-C Section A) Problems (only need one from below) Section B) Data (need at least one of the following categories in this section) Category 1: (Choose three of the following): Order Unique tests Section C) Risk (any one of the following) Prescription drug management (this counts for the whole section) 11/25/2024 Vaginal discharge (ICD-10 - N89.8) Need 2 out of 3 Sections from A-C Section A) Problems (only need one from below) Section B) Data (need at least one of the following categories in this section) Category 1: (Choose three of the following): Order Unique tests Section C) Risk (any one of the following) Prescription drug management (this counts for the whole section) 08/21/2024 Other Encouraged to schedule for annual exam Need 2 out of 3 Sections from A-C Section A) Problems (only need one from below) One acute or uncomplicated illness/injury Section B) Data (at least one of the following categories in this section) Category 1: (Choose 2 of the following): Order unique tests Section C) Risk Document low risk of morbidity/mortal ity Plan Of Treatment No Information Insurance Providers Payer Name Payer Address Payer Phone Subscriber Number Group Number Insured Name Patient Relationship to Insured Coverage Start Date Coverage End Date [facility] [address] [place] [phone] [id number] Abebe Dotson Self - patient is the insured Medical (General) History Medical History History ICD Code recurrent bv/vvc smoker UTI genital warts 06/2021 depression/anxiety chlamydia Abnormal pap smear 09/2024 strep / kindey infection 09/2024 - strep throat Surgical History Surgery Date(Month/Year) csection Hospitalization History Reason Date(Month/Year) strep/ kidney infection child
== END 2025-05-07 13:42 | disposition home or self-care (01) ==
LOC: HO.HMCFMS 12:53
PROVIDERS: Visit Provider Student in an Organized Health Care Education/Training Program
DX: F41.9 Anxiety disorder, unspecified (principal); G47.00 Insomnia, unspecified; Z96.22 Myringotomy tube(s) status; D17.9 Benign lipomatous neoplasm, unspecified; R87.619 Unspecified abnormal cytological findings in specimens from cervix uteri; Z94.9 Transplanted organ and tissue status, unspecified; Z87.891 Personal history of nicotine dependence; H93.90 Unspecified disorder of ear, unspecified ear

== ENCOUNTER 2025-05-26 09:34 | Outpatient (AMB) | payer OTHER, SELFPAY ==
--- NOTE | 2025-05-26 09:36 | A.OFFPC_ITS ---
Vital Signs 05/26/25 09:39 Height 5 ft 4.96 in Weight 175 lb 8 oz BMI 29.2 BP 116/57 L Blood Pressure Location Rt brachial Position Sitting Respiration 17 Pulse 82 Pulse Source Pulse Oximeter Temp 97.9 F Temp Source Oral Pulse Oximetry (%) 98 Oxygen Delivery Method Room Air Intake Visit Reasons: 2 wk - lab review Intake Note: Patient present for lab review. Sand Control Worker Required: No Accompanied by: Self / Same As Patient Allergies No Known Allergies Allergy (Verified 05/26/25 09:39) Medication List - Last Reconciled 05/26/25 by Preston Arreguin MD ergocalciferol (vitamin D2) 1,250 mcg PO QWEEK Tobacco use date assessed: 05/07/25 Dental Screening Dental Screen Date: 05/07/25 HPI HPI Comments History of Present Illness Details History of Present Illness The patient is a 34 year old female presenting for review of recent laboratory results. Hyperlipidemia: Non-fasting laboratory results revealed elevated triglycerides at 228 mg/dL, total cholesterol at 201 mg/dL, and LDL at 108 mg/dL. The patient reports daily consumption of extra-sweet iced coffee with caramel syrup but denies significant intake of other sweets or sodas. Elevated Alanine Aminotransferase (ALT): Lab work showed a slightly elevated ALT of 44 U/L, which is attributed to diet. Vitamin D Deficiency: The patient's vitamin D level was low at 23 ng/mL. microscopic Hematuria: Urinalysis showed a small amount of blood. The patient denied being on her period. Social History: - Nutrition: The patient reports consumi ng an extra-sweet iced coffee with caramel syrup daily. - She denies eating a lot of other sweet s or sodas. - Sexual History: Patient reports gettin g tested for STIs frequently. Diagnostic Results: - Complete Blood Count: Normal, with no evidence of anemia or infection. - Comprehensive Metabolic Panel: Sodium, potassium, kidney function, calcium, and magnesium are within normal limits. - Glucose: Random glucose and hemoglobin A1c are normal, indicating no prediabetes. - Liver Function Tests: ALT is elevated at 44 U/L (ref < 31); AST and total bilirubin are normal. - Lipid Panel (non-fasting): Triglycerid es are elevated at 228 mg/dL (ref < 150), total cholesterol is elevated at 201 mg/dL (ref < 200), and LDL is elevated at 108 mg/dL (ref < 100). - Vitamins: Vitamin B12 is normal; Vitam in D is low at 23 ng/mL (ref 30-100). - Thyroid studies: Normal. - Folate: Normal. - Urinalysis: Positive for a small amoun t of blood. - Sexually Transmitted Infections: Tests for syphilis, chlamydia, and HIV are negative. Past Medical History - The patient reports getting tested for sexually transmitted infections all the time . Health Maintenance - STI screening for syphilis, chlamydia, and HIV was performed with negative results. - Dietary counseling was provided, recom mending a reduction in sweet drinks to address elevated triglyceride, cholesterol, and ALT levels. - Follow-up labs are planned in three mo [facility] to monitor lipids, liver enzymes, and vitamin D levels. [facility] Medical History Chronic disease of ear History of tobacco use Abnormal Pap smear of cervix Lipoma Insomnia Anxiety Surgical History History of tissue graft History of placement of ear tubes Family History Father Heart problem Mother No problems noted. Social History (Updated 05/26/25 @ 09:39 by Brayan Woods CMA) Housing: Apartment Alcohol intake: current Patient Tobacco Use Status: Former Tobacco user e-Cigarette/Vaping Use: Never Used service: No Current occupational status: employed Cognitive needs: No Hearing needs: No Vision needs: Yes (rx glasses) Questionnaire Thrive Questionnaire Date Thrive assessed: 05/07/25 I am a: Patient What is your living situation today?: I have a steady place to live Within the past 12 months, did the food you bought not last and you didn't have the money to get more?: Never true Within the past 12 months, did you worry whether your food would run out before you got money to buy more?: Never true Do you have trouble paying for medicines?: No Do you have trouble getting transportation to medical appointments?: No Do you have trouble paying your heating and electricity bill?: No Do you have trouble taking care of your child, family member or friend?: No Do you have trouble with day-to-day activities such as bathing, preparing meals, shopping, managing finances, etc.?: No Are you currently unemployed and looking for a job?: No Are you interested in more education?: No Currently or been in a relationship where the following occur: No concerns reported THRIVE Score: 0 Review of Systems Narrative Review of Systems - General: Denies any specific concerns. 10-point ROS reviewed and negative except as noted in HPI Physical exam (Primary Care) Vital Signs: Last Vital Signs Temp 97.9 F 05/26/25 09:39 Pulse 82 05/26/25 09:39 Resp 17 05/26/25 09:39 BP 116/57 L 05/26/25 09:39 Pulse Ox 98 05/26/25 09:39 Oxygen Delivery Method Room Air 05/26/25 09:39 BMI result Body Mass Index 29.2 Tobacco/Smoking Status: Tobacco use Status Tobacco use date assessed 05/07/25 05/26/25 09:37 Patient Tobacco Use Status Former Tobacco user 05/26/25 09:39 e-Cigarette/Vaping Use Never Used 05/26/25 09:39 Thrive Assessment: Date of Thrive Assessment Date Thrive assessed 05/07/25 05/26/25 09:37 Currently or been in a relationship where the following occur: No concerns reported Narrative Physical Exam General: Well-appearing, in no acute distress. Vital signs: Within normal limits. HEENT: Normocephalic, atraumatic. PERRLA, EOMI. Conjunctiva clear, sclera anicteric. Oropharynx clear, mucous membranes moist. TMs intact bilaterally. Neck: Supple, no lymphadenopathy, no thyromegaly, no JVD or carotid bruits. Cardiovascular: RRR, normal S1/S2, no murmurs, rubs, or gallops. Peripheral pulses 2+ and symmetric. No edema. Respiratory: Lungs clear to auscultation bilaterally, no wheezes, rales, or rhonchi. Normal effort. Abdomen: Soft, non-tender, non-distended. Normoactive bowel sounds. No hepatosplenomegaly, no masses. MSK: Full range of motion, no joint swelling or deformity. Normal gait. Skin: Warm, dry, intact. No rashes, lesions, or pallor. Neuro: Alert and oriented x3. Cranial nerves II-XII intact. Strength 5/5 throughout. Sensation intact. Reflexes 2+ symmetric. Normal coordination and gait. Psych: Appropriate mood and affect. Normal judgment and insight. Coding Level of Care Code Est Pt Level 3 (92259) Add On Problem Visit Only Diagnoses Hyperlipidemia E78.5 Elevated ALT measurement R74.01 Vitamin D deficiency E55.9 Assessment & Plan Assessment & Plan (1) Hyperlipidemia: Code(s): E78.5 - Hyperlipidemia, unspecified Category: Medical (2) Elevated ALT measurement: Code(s): R74.01 - Elevation of levels of liver transaminase levels Category: Medical (3) Vitamin D deficiency: Code(s): E55.9 - Vitamin D deficiency, unspecified Category: Medical Plan Consent Patient was informed and verbally consented to the use of an ambient scribe for clinic note documentation during this visit. Plan 1. Hyperlipidemia And Elevated Alanine Aminotransferase (Alt) - The elevated lipids and ALT are attributed to diet, specifically high sugar intake from daily sweetened coffee. - Recommended lifestyle modifications, including reducing the intake of sodas and sweet drinks, to lower these levels. - Plan to repeat labs in three months to monitor progress. 2. Vitamin D Deficiency - A prescription for a high-dose vitamin D supplement has been sent to the patient's pharmacy, [facility]. - The patient is instructed to take one pill per week for 12 weeks. - Follow-up labs will be conducted in three months to recheck her vitamin D level. 3. Hematuria - The trace blood found in the urine is considered benign - Provided reassurance and no further workup is indicated at this time. Discussion Notes I reviewed the patient's recent lab results with her, noting that most values, including her complete blood count, kidney function, and glucose levels, were normal. I explained that her ALT, triglycerides, and cholesterol levels were slightly elevated and that this was likely due to her daily consumption of high- sugar beverages. I advised her that lifestyle modifications, specifically cutting down on sweet drinks, should improve these numbers. I also informed her that her vitamin D level was low, and I have prescribed a high-dose weekly supplement for 12 weeks to correct it. I reassured her that the trace blood in her urine was not a concern and will monitor, We reviewed her negative STI screen results. We agreed to repeat labs in three months to monitor her lipids, ALT, and vitamin D levels. Patient Instructions - Take your new vitamin D prescription, one pill once a week. - The prescription has been sent to [facility]. - Try to cut down on sweet drinks, sodas, and snacks. - This will help lower the fat levels in your blood and improve your liver health. - Return in three months for repeat lab tests. Medical Decision Making The patient is a 34-year-old female presenting for a review of her laboratory results. Her non-fasting lipid panel showed mild hypertriglyceridemia and hypercholesterolemia, accompanied by a mild elevation in ALT. Given her dietary history of daily high-sugar beverage intake, these findings are most consistent with diet-induced metabolic changes rather than a primary disease process. The risk of pancreatitis from her triglyceride level of 228 is low, so initial management focuses on lifestyle modification. The patient was also found to have vitamin D deficiency with a level of 23. Repletion with a high-dose weekly supplement is the standard of care to restore normal levels and address potential symptoms such as fatigue and myalgias. The trace hematuria is considered a benign finding,. The plan is to provide dietary counseling, initiate vitamin D supplementation, and re-evaluate with repeat labs in three months to assess response to interventions. Total Time Statement 20 min Total time spent caring for the patient today includes pre-visit chart review, documentation, review of laboratory and diagnostic imaging results, medication reconciliation, medically necessary evaluation, counseling on diagnoses, care coordination, ordering appropriate tests and medications, review of tests performed by other providers, reporting test results to the patient, and communication with other healthcare providers. Medications: New ergocalciferol (vitamin D2) 1,250 mcg PO QWEEK 12 caps 0RF
[2025-05-26 09:39] VITALS: BP 116/57; PULSE 82; RESP 17; TEMP 36.6; O2SAT 98; BMI 29.2
--- OUTSIDE RECORDS SUMMARY | 2025-05-26 09:59 | XMS_ITS | Patient Health Record ---
Author Organization [facility] Address [address] [place] [address] Care Team Providers Care Field Instructor Name Role Phone JUANITA FONTENOT Unavailable [phone] Allergies No Known Allergies Results Component Value Reference Range Flag Notes NuSwab VG+, Shannon 6sp-1800 68 Reviewed date:12/01/2024 08:16:24 AM Interpretation:Negative Performing Lab:[facility] [place], [address] [place] [address], [place], Phone - [phone], Director - Marbin Notes/Report: and Drug Administration. by [facility]. It has not been cleared or approved by the Food was developed and its performance characteristics determined 201875-Upiuxvn krusei, MARTITA 906005-X parapsilosis/tropicalis; 266496-Soltllx lusitaniae, MARTITA; Test(s) 941267-Yvocjwg albicans, MARTITA; 550808-Impqecp glabrata, MARTITA; and Drug Administration. by [facility]. It has not been cleared or approved by the [place] was [employer] and its performance characteristics determined Megasphaera 1 Test(s) 421145- Atopobium vaginae; 720757- BVAB 2; 391705- Atopobium vaginae Low - 0 BVAB 2 [...] Negative HCV Antibody RFX to Quant PC [id number] Reviewed date:12/01/2024 08:59:27 AM Interpretation:Negative Performing Lab:[facility], [address], [address], [place], Phone - [phone], Director - [facility] Notes/Report: HCV Ab Non Reactive Non Reactive Interpretation: Not infected with HCV unless early or acute infection is suspected (which may be delayed in an immunocompromised individual), or other evidence exists to indicate HCV infection. HIV Ab/p24 Ag with Reflex-[id number] Reviewed date:12/01/2024 09:00:19 AM Interpretation:Negative Performing Lab:[facility], [address], [address], [place], Phone - [phone], Director - [facility] Notes/Report: HIV Ab/p24 Ag Screen Non Reactive Non Reactive HIV-1/HIV-2 antibodies and HIV-1 p24 antigen were NOT detected. There is no laboratory evidence of HIV infection. HIV Negative T pallidum Screening Arthur -[id number] Reviewed date:12/01/2024 09:00:31 AM Interpretation:Negative Performing Lab:[facility], [address], [address], [place], Phone - [phone], Director - [facility] Notes/Report: T pallidum Antibodies Non Reactive Non [...] 08:59:53 AM Interpretation:Immune Performing Lab:[facility] [address], [facility], [place], Phone - [phone], Director - [facility] Notes/Report: Hepatitis B Surf Ab Quant 412.0 Immunity>10 mIU/mL Status of Immunity Anti-HBs Level Inconsistent with Immunity 0.0 - 10.0 Consistent with Immunity >10.0 HBsAg Screen-[id number] Reviewed date:12/01/2024 09:00:05 AM Interpretation:Negative Performing Lab:[facility] [address], [address], [place], Phone - [phone], Director - [facility] Notes/Report: HBsAg Screen Negative Negative Wet [place] [...] date:08/24/2024 12:30:07 PM Interpretation:Negative Performing Lab:[facility], [facility], [place], [address] Brian Oliva DO Notes/Report: GONORRHEA, AMPLIFIED NEGATIVE NEGATIVE N CHLAMYDIA, AMPLIFIED NEGATIVE NEGATIVE N DNA Test Results SEX: F : 1990 AGE: 33 [id number] CLINIC ID: [id number] SS: PHYSICIAN: JUANITA FONTENOT CNM COLLECTED BY: [id number] Specimen Source: Urine Specimen Type: Urine, Kiran PCR Medium Neisseria gonorrhoeae: NEGATIVE Normal Value: Negative Chlamydia trachomatis: NEGATIVE Normal Value: Negative Test, Urine Reviewed date:08/21/2024 03:03:02 PM Interpretation:Negative Performing Lab: Notes/Report: Negative Test, Urine Negative Lot # [id number] Exp. Date 02/16/25 Reason For Referral Reason L likely Bartholin c yst present for 1.5-2wks. Not self improving or draining. Please further evaluate and manage STI labs pending Diagnosis 1 Cyst of Bartholin's gland (N75.0) Referral Organization [facility] Referring Provider First Name JUANITA Referring Provider Last Name CORIE Referring Provider Speciality Certified Nurse Creative Developer Referred Provider Specialty Tool Design Checker Clinical Notes Janie Woods 2024 12:53:50 PM > referral faxed to [place] Referral Priority Urgent Medications Medication SIG (Take, [...] W/U Status Risk Notes Problem Anogenital warts ([id number]) Anogenital (venereal) warts (A63.0) Active confirmed Vital Signs Blood pressure diastolic 76 mm Hg 11/25/2024 Height 5'2 in 11/25/2024 Blood pressure systolic 126 mm Hg 11/25/2024 Weight 167.8 lbs 11/25/2024 BMI 30.69 kg/m2 11/25/2024 Encounters Encounter Location Date Provider Diagnosis [address] [id number] 08/21/2024 JUANITA FONTENOT Encounter for scre ening for infections with a predominantly sexual mode of transmission Z11.3 ; Encounter for test, result negative Z32.02 ; Encounter for screening for other infectious and parasitic diseases Z11.8 ; Other problems related to lifestyle Z72.89 and Encounter for prescription of emergency contraception Z30.[address] [id number] 11/25/2024 JUANITA FONTENOT Encounter for scre ening for infections with a predominantly sexual mode of transmission Z11.3 ; Vaginitis, Acute N76.0 ; Other problems related to lifestyle Z72.89 ; Cyst of Bartholin's gland N75.0 ; HIV Screening Z11.4 ; Encounter for screening for other viral diseases Z11.59 and Vaginal discharge N89.[address] [id number] 01/06/2025 JUANITA FONTENOT [address] [id number] 03/24/2025 JUANITA OFNTENOT Assessments Encounter Date Diagnosis (ICD Code) Assessment [...] least a month for prevention. Reviewed an [place] study that came out July 2024, showing [...] L labia cyst present. Will put in HAIRSPRING FABRICATION SUPERVISOR referral for further evaluation and management. Can [...] Insured Coverage Start Date Coverage End Date [employer] [address] [place] [address] [id number] Abebe Dotson Self - patient is the insured Medical (General) History Medical History History ICD Code recurrent bv/vvc smoker UTI genital warts 06/2021 depression/anxiety chlamydia Abnormal pap smear 09/2024 strep / kindey infection 09/2024 - strep throat Surgical History Surgery Date(Month/Year) csection Hospitalization History Reason Date(Month/Year) strep/ kidney infection child
--- OUTSIDE RECORDS SUMMARY | 2025-05-26 09:59 | XMS_ITS | Clinical Summary ---
Author Organization [facility] Address [address] [place] [address] Phone Care Team Providers Care Balance And Hairspring Assembler Name Role Phone Alexi Harrington JOHN Primary Care Provider [phone] Allergies No known active allergies Medications No [...] complete this topic Insurance JABARI Care Teams Balance And Hairspring Assembler Relationship Specialty Start Date End Date Alexi Harrington FNP [address] [place] [address] PCP - General Internal Medicine 08/15/20
== END 2025-05-26 09:52 | disposition home or self-care (01) ==
LOC: HO.HMCFMS 09:34
PROVIDERS: PCP Student in an Organized Health Care Education/Training Program; Visit Provider Student in an Organized Health Care Education/Training Program
DX: E78.5 Hyperlipidemia, unspecified (principal); R74.01 Elevation of levels of liver transaminase levels; E55.9 Vitamin D deficiency, unspecified